=== PATIENT | female | born 1990 | race American Indian/Alaskan Native ===

== ENCOUNTER 2016-09-28 17:24 | Emergency (ER) | payer SELFPAY ==
[2016-09-28 21:23] VITALS: BP 147/99
--- NOTE | 2016-09-28 22:20 | Emergency Department Report ---
HPI - General Chief Complaint: Medical Clearance Time Seen by Provider: 09/28/16 22:13 - HPI HPI: This is a 26-year-old Afro-[place] female who presents to the emergency department with the request for a refill of her bipolar medication, Risperdal 1 mg daily. Patient's that she has been on for a few weeks and she is been dealing with a lot of anxiety. She denies any auditory or visual hallucinations , suicidal or homicidal ideations. Patient moved here from [place] and therefore is having insurance issues and does not currently have a primary care doctor or a psychiatrist/therapist. Patient walked here to be seen today. She denies any other physical symptoms and denies any past medical history. She denies any alcohol use or illicit drug use at this time. ED Past Medical Hx - Past Medical History Previous Medical History?: Yes Hx Psychiatric Treatment: Yes (bipolar) - Surgical History Past Surgical History?: No - Social History Smoking Status: Never Smoker Substance Use Type: None - Medications Home Medications: Home Medications Medication Instructions Recorded Confirmed Last Taken Type risperiDONE [RisperDAL] 1 mg PO DAILY #30 tablet 09/28/16 Unknown Rx ED Review of Systems ROS: Stated complaint: MH EVAL/NEEDS MED REFILL Other details as noted in HPI Comment: All other systems reviewed and negative Constitutional: denies: chills, fever Eyes: denies: eye pain, eye discharge, vision change ENT: denies: ear pain, throat pain Respiratory: denies: cough, shortness of breath, wheezing Cardiovascular: denies: chest pain, palpitations Gastrointestinal: denies: abdominal pain, nausea, diarrhea Genitourinary: denies: urgency, dysuria, discharge Musculoskeletal: denies: back pain, joint swelling, arthralgia Skin: denies: rash, lesions Neurological: denies: headache, weakness, paresthesias Psychiatric: anxiety. denies: auditory hallucinations, visual hallucinations, homicidal thoughts, suicidal thoughts Physical Exam - Physical Exam Vital Signs: Vital Signs 09/28/16 09/28/16 21:08 21:24 Temperature 97.9 F 97.9 F Pulse Rate 80 80 Respiratory 16 16 Rate Blood Pressure 147/99 Blood Pressure 147/99 [Right] O2 Sat by Pulse 100 100 Oximetry Physical Exam: GENERAL: The patient is well-developed well-nourished. Patient does not appear in any acute distress. HEENT: Normocephalic. Atraumatic. Extraocular motions are intact. Patient has moist mucous membranes. NECK: Supple. Trachea is midline. CHEST/LUNGS: Clear to auscultation. There is no respiratory distress noted. HEART/CARDIOVASCULAR: Regular. There is no tachycardia. There is no gallop rub or murmur. ABDOMEN: Abdomen is soft, nontender. Patient has normal bowel sounds. There is no abdominal distention. SKIN: There is no rash. There is no edema. There is no diaphoresis. NEURO: The patient is awake, alert, and oriented. The patient is cooperative. The patient has no focal neurologic deficits. The patient has normal speech and gait. Cranial nerves II through XII grossly intact. MUSCULOSKELETAL: There is no tenderness or deformity. There is no limitation range of motion. There is no evidence of acute injury. ED Course Vital Signs 09/28/16 09/28/16 21:08 21:24 Temperature 97.9 F 97.9 F Pulse Rate 80 80 Respiratory 16 16 Rate Blood Pressure 147/99 Blood Pressure 147/99 [Right] O2 Sat by Pulse 100 100 Oximetry ED Medical Decision Making - Medical Decision Making 26-year-old female with a history of bipolar disorder presents for medication refill. She denies any auditory or visual hallucinations, suicidal or homicidal ideations. She has cranial nerves intact and appears of sound mind, AAO 3. Patient's vital signs stable throughout her ED course. Patient does not appear to be a candidate to be made a 1013 for any reason. She will get a refill of her medications as well as a referral for the [facility]. I discussed multiple reasons for the patient return to [facility] and she understands and agrees the plan. - Differential Diagnosis bipolar disorder, anxiety, depression Critical Care Time: No Critical care attestation.: If time is entered above; I have spent that time in minutes in the direct care of this critically ill patient, excluding procedure time. ED Disposition Clinical Impression: History of bipolar disorder, Noncompliance with medication regimen Disposition: DISCHARGED TO HOME OR SELFCARE Is pt being admited?: No Does the pt Need Aspirin: No Condition: Good Instructions: Bipolar Disorder (ED), Anxiety (ED) Additional Instructions: Please follow-up with the [facility] facility regarding your history of bipolar disorder and future medication refill. Return to the emergency department with any hallucinations, thoughts of harming herself or others, or any acute distress. Prescriptions: risperiDONE [RisperDAL] 1 mg PO DAILY #30 tablet Referrals: [facility] [Outside] - 3-5 Days [facility] [Outside] - 3-5 Days Time of Disposition: 22:20
== END 2016-09-28 22:29 | disposition home or self-care (01) ==
LOC: EEVIPCON 17:24 → ED 17:24
DX: Z91.14 Patient's other noncompliance with medication regimen (principal); F31.9 Bipolar disorder, unspecified
CPT/HCPCS: 99282